=== PATIENT | female | born 1935 | race Caucasian/White ===

== ENCOUNTER 2018-03-11 10:40 | Emergency (ER) | payer MEDICARE ==
[~2018-03-11] VITALS: Ht 172.7 cm; Wt 67.1 kg
[~2018-03-11 10:40] MED LIST: ACET500 PO; ASPI81EC; BISHYD2.5; BISHYD2.5 PO; CALCAVITD PO; CEPH500 PO; ENOX40I SUBQ; FLAX PO; GABA100; GABA300 PO; OMEP20ER PO; RXCLIN PO; SPIR25 PO; STOOL SOFTENER; SUCR1 PO; VALS80; VALS80 PO
[2018-03-11] MEDS ORDERED: LOSA50 PO (12:12)
[2018-03-11] MEDS ORDERED: GABA300 PO (12:12)
[2018-03-11] MEDS ORDERED: Bisoprolol-Hct1 EAC2 (12:13)
[2018-03-11] MEDS ORDERED: SPIR25 PO (12:13)
[2018-03-11] MEDS ORDERED: Omeprazole20 M1 PO (12:13)
[2018-03-11] MEDS ORDERED: VITAMIN D-32000 UNIT PO (12:13)
== END 2018-03-11 13:00 | disposition home or self-care (01) ==
LOC: ER 10:40
DX: S92.354A Nondisplaced fracture of fifth metatarsal bone, right foot, initial encounter for closed fracture (principal); I10 Essential (primary) hypertension; Z88.0 Allergy status to penicillin; Z88.2 Allergy status to sulfonamides; Z88.8 Allergy status to other drugs, medicaments and biological substances; Z79.899 Other long term (current) drug therapy; W19.XXXA Unspecified fall, initial encounter
CPT/HCPCS: 29505; 73610; 73630; 99283-25

== ENCOUNTER 2022-11-24 00:15 | Day surgery (SDC) | payer OTHER ==
[~2022-11-24 00:15] MED LIST changes: +Bisoprolol-Hct1 EAC2; +LOSA50 PO; +VITAMIN D-32000 UNIT PO
[2022-11-24 09:38] VITALS: BP 159/73
[2022-11-24] MEDS ORDERED: MULVITA PO (11:59)
[2022-11-24] MEDS ORDERED: GABA300 PO (12:01)
[2022-11-24] MEDS ORDERED: Cymbalta20 MG PO (12:01)
== END 2022-11-24 09:38 | disposition home or self-care (01) ==
LOC: ATC 00:15
DX: R33.9 Retention of urine, unspecified (principal); I12.9 Hypertensive chronic kidney disease with stage 1 through stage 4 chronic kidney disease, or unspecified chronic kidney disease; N18.32 Chronic kidney disease, stage 3b
CPT/HCPCS: 51798

== ENCOUNTER → 2023-02-25 | Outpatient (CLI) | payer OTHER ==
[~2023-02-25] MED LIST changes: +Cymbalta20 MG PO; +MULVITA PO
[2023-02-25 13:41] LABS: Creatinine, Urine Random 63.4 mg/dL (27.00-270.00); Microalb/Creat Ratio UR, Rand 34.385 mg/g (0.000-30.000); Microalbumin, Random Urine 21.8 mg/L (0.000-20.000)
== END | disposition home or self-care (01) ==
LOC: LAB 10:55 → LAB SHORT 10:55 → EDSTATUS 02-22 10:45 → LAB FUT 02-22 10:45
PROVIDERS: Internal Medicine
DX: N18.32 Chronic kidney disease, stage 3b (principal); R73.9 Hyperglycemia, unspecified
CPT/HCPCS: 82043; 82570

== ENCOUNTER 2024-09-14 22:37 | Inpatient (IN) | payer OTHER ==
[~2024-09-14] VITALS: Ht 172.7 cm; Wt 65.5 kg
[2024-09-14 23:22] LABS: Source, Urine Clean Catch
[2024-09-14 23:23] LABS: BASOPHILS ABSOLUTE AUTO 0.08 K/mm3 (0.00-0.23); BASOPHILS PERCENT AUTO 1 % (0-2); EOSINOPHILS PERCENT AUTO 4 % (0-6); Hematocrit 33.6 % (33.0-51.0); Hemoglobin 11.2 g/dL (11.5-16.0); IMMATURE GRAN ABSOLUTE AUTO 0.05 K/mm3 (0.00-0.10); IMMATURE GRAN PERCENT AUTO 1 % (0-1); LYMPHOCYTES ABSOLUTE AUTO 1.52 K/mm3 (0.84-5.20); LYMPHOCYTES PERCENT AUTO 20 % (21-46); MONOCYTES ABSOLUTE AUTO 0.46 K/mm3 (0.16-1.47); MONOCYTES PERCENT AUTO 6 % (4-13); Mean Corpuscular HGB 30.8 pg (26.0-34.0); Mean Corpuscular HGB Conc 33.3 g/dL (31.5-36.5); Mean Corpuscular Volume 92 fL (80-100); Mean Platelet Volume 9.3 fL (9.1-12.4); NEUTROPHILS ABSOLUTE AUTO 5.31 K/mm3 (1.96-9.15); NEUTROPHILS PERCENT AUTO 69 % (41-73); Platelet Count 210 K/mm3 (150-400); RDW Coefficient Variation 13.5 % (11.7-14.2); RDW Standard Deviation 46.2 fL (35.1-46.3); Red Blood Cell Count 3.64 M/mm3 (3.80-5.20); White Blood Cell Count 7.72 K/mm3 (4.00-11.30)
[2024-09-14 23:25] LABS: Bilirubin, Urine Neg (Neg); Blood, Urine 3+ (Neg); Glucose Qualitative, Urine Neg (Neg); Ketones, Urine Neg (Neg); Leukocyte Esterase, Urine Neg (Neg); Nitrite, Urine Neg (Neg); Protein, Urine 3+ (Neg); Specific Gravity, Urine 1.015 (1.003-1.022); Urobilinogen, Urine NORM (Normal)
[2024-09-14 23:38] LABS: Appearance, Urine Clear (Clear); Color, Urine Yellow (P-Yellow)
[2024-09-14 23:39] LABS: Bacteria Few /hpf; Squamous Epithelial Cells Few /hpf (Few); White Blood Cells, Urine 0-2 /hpf (0-5)
[2024-09-14 23:40] LABS: Albumin, Blood 3.5 g/dL (3.4-5.0); Albumin/Globulin Ratio 1.1 (0.8-1.8); Bilirubin, Total 0.4 mg/dL (0.1-1.0); Calcium, Blood 8.9 mg/dL (8.5-10.1); Creatinine, Blood 1.35 mg/dL (0.40-1.00); Globulin, Blood 3.2 g/dL (2.2-4.0); Potassium, Blood 3.8 mmol/L (3.5-5.5); Total Protein, Blood 6.7 g/dL (6.4-8.2)
[2024-09-14] MEDS ORDERED: Morphine Sulfate 4 MG/1 ML Injection IV ONE (23:45)
[2024-09-15 00:02] LABS: Influenza A, PCR NEGATIVE (NEGATIVE); Influenza B, PCR NEGATIVE (NEGATIVE); Resp Syncytial Virus, PCR NEGATIVE (NEGATIVE); SARS-Cov-2 (COVID-19) PCR, MMC NEGATIVE (NEGATIVE)
[2024-09-15] MEDS ORDERED: Acetaminophen 325 MG TABLET PO ONE (00:45)
[2024-09-15] MEDS ORDERED: Ondansetron HCl 2 MG / ML 2ML Vial IV PRN (01:05)
[2024-09-15] MEDS ORDERED: FentaNYL Citrate 50 MCG/ML 2 ML Injection IV PRN ×2 (01:10→06:30)
[2024-09-15] MEDS ORDERED: Acetaminophen 325 MG TABLET PO PRN (01:10)
[2024-09-15] MEDS ORDERED: NS 1,000 ML IV SCH (01:10)
[2024-09-15] MEDS ORDERED: FLU VACC TS2024-25(6MOS UP)/PF 45 MCG/0.5 ML SYRINGE IM ONE (01:10)
[2024-09-15 02:24] VITALS: BP 122/105
[2024-09-15 04:39] VITALS: BP 127/57
[2024-09-15 07:23] LABS: BASOPHILS ABSOLUTE AUTO 0.05 K/mm3 (0.00-0.23); BASOPHILS PERCENT AUTO 1 % (0-2); EOSINOPHILS ABSOLUTE AUTO 0.11 K/mm3 (0.00-0.68); EOSINOPHILS PERCENT AUTO 2 % (0-6); Hematocrit 32.5 % (33.0-51.0); Hemoglobin 10.6 g/dL (11.5-16.0); IMMATURE GRAN ABSOLUTE AUTO 0.04 K/mm3 (0.00-0.10); IMMATURE GRAN PERCENT AUTO 1 % (0-1); LYMPHOCYTES ABSOLUTE AUTO 1.13 K/mm3 (0.84-5.20); LYMPHOCYTES PERCENT AUTO 16 % (21-46); MONOCYTES ABSOLUTE AUTO 0.52 K/mm3 (0.16-1.47); MONOCYTES PERCENT AUTO 7 % (4-13); Mean Corpuscular HGB 30.4 pg (26.0-34.0); Mean Corpuscular HGB Conc 32.6 g/dL (31.5-36.5); Mean Corpuscular Volume 93 fL (80-100); Mean Platelet Volume 9.3 fL (9.1-12.4); NEUTROPHILS ABSOLUTE AUTO 5.14 K/mm3 (1.96-9.15); NEUTROPHILS PERCENT AUTO 74 % (41-73); Platelet Count 185 K/mm3 (150-400); RDW Coefficient Variation 13.6 % (11.7-14.2); RDW Standard Deviation 46.4 fL (35.1-46.3); Red Blood Cell Count 3.49 M/mm3 (3.80-5.20); White Blood Cell Count 6.99 K/mm3 (4.00-11.30)
[2024-09-15 07:30] VITALS: BP 147/57
[2024-09-15 07:54] LABS: Albumin, Blood 3.2 g/dL (3.4-5.0); Albumin/Globulin Ratio 1.1 (0.8-1.8); Bilirubin, Total 0.6 mg/dL (0.1-1.0); Bun/Creatinine Ratio 19.8 (12.0-20.0); Calcium, Blood 8.7 mg/dL (8.5-10.1); Creatinine, Blood 1.31 mg/dL (0.40-1.00); Globulin, Blood 2.9 g/dL (2.2-4.0); Potassium, Blood 4.1 mmol/L (3.5-5.5); Total Protein, Blood 6.1 g/dL (6.4-8.2)
[2024-09-15] MEDS ORDERED: DULoxetine HCL 20 MG Cap DR PO SCH (09:00)
[2024-09-15] MEDS ORDERED: Gabapentin 300 MG Cap PO SCH ×2 (09:00→21:00)
[2024-09-15] MEDS ORDERED: Losartan Potassium 25 MG Tab PO SCH (09:00)
[2024-09-15] MEDS ORDERED: Omeprazole 20 MG CapCR PO SCH (09:00)
[2024-09-15] MEDS ORDERED: Spironolactone 12.5 MG TAB PO SCH (09:00)
[2024-09-15 16:19] VITALS: BP 133/59
--- NOTE | 2024-09-15 18:33 | NUR ---
SHIFT SUMMARY PT AOX4, SIT AT THE EDGE OF THE BED. 2 P ASSIST WHEN TURNING IN THE BED. PURWICK IN PLACE. CALLS AND MAKES HER NEEDS KNOWN. MEDICATED FOR PAIN PER THE EMAR. REPOSITIONED THROUGHOUT THE SHIFT. PT IS NO LONGER NPO, NO PROCEDURE SCHEDULED. NO EVENTS PER TELE. CALL LIGHT WITHIN REACH, BED LOCKED AND IN THE LOWEST POSITION. WILL REPORT TO ONCOMING NURSE.
[2024-09-15 20:00] VITALS: BP 141/73
--- NOTE | 2024-09-16 03:55 | NUR ---
SHIFT SUMMARY PT ALERT AND ORIENTED TIMES 4 . PT ADMITTED FOR SUPERIOR AND INFERIOR PUBIC RAMI FRACTURE. PT IS ON TELE, ROOM AIR. PT HAS PURE WICK IN PLACE. BED IN LOW POSITION, CALL LIGHT WITHIN REACH, RAILS TIMES 2.
[2024-09-16 05:58] LABS: Hematocrit 32.7 % (33.0-51.0); Hemoglobin 10.7 g/dL (11.5-16.0); Mean Corpuscular HGB 30.7 pg (26.0-34.0); Mean Corpuscular HGB Conc 32.7 g/dL (31.5-36.5); Mean Corpuscular Volume 94 fL (80-100); Mean Platelet Volume 9.5 fL (9.1-12.4); Platelet Count 173 K/mm3 (150-400); RDW Coefficient Variation 13.8 % (11.7-14.2); RDW Standard Deviation 46.8 fL (35.1-46.3); Red Blood Cell Count 3.48 M/mm3 (3.80-5.20)
[2024-09-16 06:06] VITALS: BP 145/66
[2024-09-16 06:22] LABS: Bun/Creatinine Ratio 18.5 (12.0-20.0); Calcium, Blood 8.4 mg/dL (8.5-10.1); Creatinine, Blood 1.24 mg/dL (0.40-1.00); Potassium, Blood 3.7 mmol/L (3.5-5.5)
[2024-09-16 07:48] VITALS: BP 118/67
[2024-09-16] MEDS ORDERED: Losartan Potassium 50 MG Tab PO SCH ×2 (09:00→21:06)
[2024-09-16 15:39] VITALS: BP 116/73
--- NOTE | 2024-09-16 17:19 | NUR ---
SHIFT SUMMARY PT AOX4, BR/SIT AT THE EDGE OF THE BED AT THIS TIME. SHE IS VERY PAINFUL TO MOVE BUT ACTIVELY DOES HER EXERCISES IN BED PROVIDED BY PT. MEDICATED FOR PAIN PER THE EMAR. PURWICK IN PLACE AND PATENT. FAMILY AT THE TODAY. PT HAS HAD NO ACUTE ISSUES. REPOSITIONED THROUGHOUT THE SHIFT. CALL LIGHT WITHIN REACH, BED LOCKED AND IN THE LOWEST POSITION. WILL REPORT TO ONCOMING NURSE.
[2024-09-16] MEDS ORDERED: TraMADol HCl 50 MG Tab PO PRN (18:55)
[2024-09-16 19:43] VITALS: BP 134/82
[2024-09-17 00:31] VITALS: BP 150/69
[2024-09-17 04:51] VITALS: BP 140/65
--- NOTE | 2024-09-17 04:52 | NUR ---
SHIFT SUMMARY PATIENT IS ALERT AND ORIENTED. PATIENT HAS HAD NO ACUTE EVENTS THIS SHIFT. VITAL SIGNS REVIEWED. PATIENT HAS HAD COMPLAINTS OF PAIN AND MEDICATED PER EMAR. PATIENT HAS HAD NO COMPLAINTS OF NAUSEA, SOB OR VOMMITING THIS SHIFT. PATIENT HAS HAD A HARD BM THIS SHIFT. NO EVENTS ON TELE. BED ALARM ON. BED IN LOCKED AND LOWEST POSITION. CALL LIGHT IN PLACE.
[2024-09-17 07:37] VITALS: BP 141/79
[2024-09-17 12:35] VITALS: BP 126/53
[2024-09-17 15:26] VITALS: BP 112/57
--- NOTE | 2024-09-17 19:09 | NUR ---
SUMMARY- PT A/O X4, BEDREST, PT ADJUSTS POSITION. PT SAT ON THE EDGE OF THE BED FOR ALL MEALS. PT STATES MIN PAIN LONG SHE IS SITTING OF LAYING STILL. MANAGED PAIN WITH ULTRAM 25MG ONCE AND TYLENOL ONCE. PAIN SEVERE WHEN LIFTING HER L LEG. PHYSICAL THERAPY DID NOT ATTEMPT TO STAND PT PAIN WAS UNBEARABLE WITH THIS MOVEMENT. PLAN TO PREMEDICATE PT PRIOR TO TX TOMORROW. PT TOLERATING FOOD AND FLUID. HAD VERY HARD STOOL YESTERDAY. WILL START ON STOOL SOFTNER. REPORTED ALL TO NOC RN
[2024-09-17] MEDS ORDERED: Bisacodyl 5 MG TabEC PO PRN (19:20)
[2024-09-17] MEDS ORDERED: Sennosides 8.6 MG Tab PO PRN (19:20)
[2024-09-17 19:33] VITALS: BP 122/79
[2024-09-17] MEDS ORDERED: Polyethylene Glycol 3350 17 gm PO SCH (21:00)
[2024-09-18 01:06] VITALS: BP 122/49
[2024-09-18 04:49] VITALS: BP 141/63
--- NOTE | 2024-09-18 05:39 | NUR ---
SHIFT SUMMARY PATIENT IS ALERT AND ORIENTED. PATIENT HAS HAD NO ACUTE EVENTS THIS SHIFT. PATIENT HAS HAD NO COMPLAINTS OF SOB, NAUSEA OR VOMITTING THIS SHIFT. PATIENT HAS COMPLAINED OF PAIN AND MEDICATED PER EMAR. PATIENT HAS BEEN SLEEPING MOST OF SHIFT. BED IN LOCKED AND LOWEST POSITION. CALL LIGHT IN PLACE.
[2024-09-18 06:25] LABS: Calcium, Blood 8.3 mg/dL (8.5-10.1); Creatinine, Blood 1.5 mg/dL (0.40-1.00); Potassium, Blood 4.5 mmol/L (3.5-5.5)
[2024-09-18 07:34] VITALS: BP 130/67
[2024-09-18 11:36] VITALS: BP 129/60
--- NOTE | 2024-09-18 11:53 | NUR ---
"Spiritual Care Visit | Pt. Request Pt. is awake in her bed when she welcomes my visit. Pt. is delightfully pleasant. Facilitated a life review, and listen with interest, empathy, and care. Considered matters of neto and belief, and Pt. shares of her confucianism and mormon. Pt. displayed evidence of a confident hope, and verbalized an expectation that she would be discharged home where her family could care for her. Took her by the hand hand prayed for the Pt. Pt. verbalized gratitude for the spiritual care visit."
[2024-09-18] MEDS ORDERED: BISOPROLOL-HCT1 EAC2 PO (14:07)
[2024-09-18 15:18] VITALS: BP 121/63
[2024-09-18] MEDS ORDERED: Bisacodyl 10 MG Supp PR PRN (16:35)
--- NOTE | 2024-09-18 18:30 | NUR ---
SUMMARY- PT A/O X4. ABLE TO SIT AT THE EDGE OF BED FOR MEALS. WORKED WITH PHYSICAL THERAPY AND WAS ABLE TO GET UP WITH WALKER AND TAKE SOME STEPS WITH WALKER TO CHAIR. PT MEDICATED REGULARLLY WITH ULTRAM ALTERNATE WITH TYLENOL. PT STATES PAIN CONTROLLED EXCEPT WHEN L LEG LIFTED UP, PT BECOMES SEVERELY PAINFUL. PT HAD XXLG SOFT BROWN FORMED STOOL AFTER BOWEL CARE. PT TOLERATING FOOD AND FLUID. PLAN FOR PT TO DC HOME LIKELY TOMORROW WITH H/H AND FAMILY HELP. WILL REPORT TO JOE LANDERS.
[2024-09-18 19:47] VITALS: BP 134/61
[2024-09-19 00:09] VITALS: BP 142/74
[2024-09-19 03:52] VITALS: BP 135/54
--- NOTE | 2024-09-19 04:36 | NUR ---
SHIFT SUMMARY: PATIENT A/OX4, PLEASANT AND COOPERATIVE c CARE. PATIENT REPORTS PAIN 3/10 TO L HIP, MEDICATED FOR PAIN PER EMAR c GOOD EFFECT. PATIENT DENIES CP/PRESSURE, SOB, N/V AND DIZZINESS. PATIENT ON TELE, SR HR IN THE 70'S BPM c OCCASIONAL PVC. PATIENT SLEPT ON/OFF T/O SHIFT. PUREWICK, SCD'S IN PLACED. PATIENT RECEIVED SCHEDULED MEDS PER EMAR. VITAL SIGNS REVIEWED. BED ALARM ON FOR SAFETY. CALL LIGHT IN REACH.
[2024-09-19 07:39] VITALS: BP 143/80
[2024-09-19] MEDS ORDERED: Enoxaparin 30 MG/0.3 ML SYR SC SCH (09:00)
[2024-09-19] MEDS ORDERED: Acetaminophen650 M1 PO (13:58)
[2024-09-19] MEDS ORDERED: MIRALAX17 GM PO (13:59)
[2024-09-19] MEDS ORDERED: TRAM50 PO (14:00)
[2024-09-19 15:53] VITALS: BP 144/82
--- NOTE | 2024-09-19 16:01 | NUR ---
PT DISCHARGED HOME WITH HOME HEALTH. CURRENTLY WAITING ON SON TO ARRIVE. DISCHARGE INSTRUCTIONS DISCUSSED WITH PT AND DAUGHTER, EMPHASIZED IMPORTANCE OF UNDERSTANDING FALL RISK IN THE HOME. PT AND DAUGHTER VERBALIZED UNDERSTANDING. PT IS A SBA WITH FWW AND GAIT BELT. PHYSICAL THERAPY TO BE CONTINUED WITH HOME HEALTH.
== END 2024-09-19 16:53 | disposition home health service (06) | DRG 536 ==
LOC: ER 22:37 → MEDS 09-15 01:04 → ERHOLD 09-15 01:04 → MEDS 09-15 02:18
PROVIDERS: Emergency Medicine; Family Medicine; Internal Medicine; ADMIT Internal Medicine
DX: S32.512A Fracture of superior rim of left pubis, initial encounter for closed fracture (principal); S32.592A Other specified fracture of left pubis, initial encounter for closed fracture; W18.39XA Other fall on same level, initial encounter; Y92.009 Unspecified place in unspecified non-institutional (private) residence as the place of occurrence of the external cause; G62.9 Polyneuropathy, unspecified; K21.9 Gastro-esophageal reflux disease without esophagitis; E55.9 Vitamin D deficiency, unspecified; F32.A Depression, unspecified; I12.9 Hypertensive chronic kidney disease with stage 1 through stage 4 chronic kidney disease, or unspecified chronic kidney disease; N18.2 Chronic kidney disease, stage 2 (mild); Z96.653 Presence of artificial knee joint, bilateral; Z96.641 Presence of right artificial hip joint; Z88.0 Allergy status to penicillin; Z88.2 Allergy status to sulfonamides; Z88.8 Allergy status to other drugs, medicaments and biological substances
CPT/HCPCS: 0241U; 36415; 51701; 71045; 72192; 73030; 73502; 80048; 80053; 81001; 83880; 84484; 85025; 85027; 93005; 93010; 97110; 97112; 97116; 97162; 97530; 99285-25; A9270; J1650; J3010; J7030